=== PATIENT | male | born 1980 | race Caucasian/White ===

== ENCOUNTER 2024-04-07 00:44 | Emergency (ER) | payer OTHER, SELFPAY ==
[2024-04-07 00:51] VITALS: BP 134/95
[2024-04-07 01:13] VITALS: BMI 32.8
[2024-04-07 01:45] LABS: Urine Albumin Negative (Neg - Trace); Urine Bilirubin Negative (Negative); Urine Character Clear (Clear); Urine Color Yellow; Urine Glucose Negative (Negative); Urine Ketone Trace (Negative); Urine Leukocyte Negative (Negative); Urine Nitrite Negative (Negative); Urine Occult Blood Negative (Negative); Urine Urobilinogen 1+ (Neg - 1+); Urine pH 6.5 (5.0-9.0)
[2024-04-07 01:47] LABS: % Basophils 0.7 % (0-2); % Eosinophils 1.6 % (0-6); % Immature Granulocytes 0.3 % (0-0.5); % Lymphocytes 18.3 % (20.5-51.1); % Monocytes 15.9 % (1.7-9.3); % Neutrophils 63.2 % (42.2-75.2); Absolute Basophils 0.1 10^3/uL (0-0.2); Absolute Eosinophils 0.1 10^3/uL (0-0.7); Absolute Lymphocytes 1.3 10^3/uL (1.2-3.4); Absolute Monocytes 1.1 10^3/uL (0.1-0.6); Absolute Neutrophils 4.3 10^3/uL (1.4-6.5); Hematocrit 44.1 % (39.0-52.0); Hemoglobin 15.7 g/dL (13.0-18.0); Mean Corp Hgb Conc. 35.6 g/dL (33.0-37.0); Mean Corpuscular Hgb 28.9 pg (27.0-31.0); Mean Corpuscular Volume 81.1 fL (80.0-94.0); Mean Platelet Volume 9.6 fL (7.4-10.4); Nucleated Red Blood Cells % 0 % (-); Platelet Count 215 10^3/uL (130-400); Red Blood Cell Count 5.44 10^6/uL (4.70-6.10); Red Cell Dist. Width 13.2 % (11.5-14.5); White Blood Cell Count 6.8 10^3/uL (4.8-10.8)
[2024-04-07 02:01] LABS: ALT (SGPT) 33 U/L (0-50); AST (SGOT) 33 U/L (17-59); Albumin 4.2 g/dl (3.5-5.0); Alkaline Phosphatase 99 U/L (38-126); Blood Urea Nitrogen 12 mg/dl (9-20); Calcium 9.3 mg/dl (8.4-10.2); Carbon Dioxide 26 mmol/L (22-30); Chloride 105 mmol/L (98-107); Estimated Creatinine Clearance 109 ml/min; Glucose 114 mg/dl (70-99); Lipase 61 U/L (23-300); Potassium 4.1 mmol/L (3.5-5.1); Sodium 139 mmol/L (135-145); Total Bilirubin 0.5 mg/dl (0.2-1.3); Total Protein 6.5 g/dl (6.3-8.2); eGFR > 60.00
--- NOTE | 2024-04-07 02:12 | ED.GENMED ---
History of Present Illness
General
Chief Complaint: Abdominal Pain
Source: patient
Exam Limitations: none
Time Seen by Provider: 04/07/24 01:35
History of Present Illness
History of Present Illness:
This is a 44 year old male that comes in with c/o possible kidney stone. States that he started with left sided abd pain a few hour ago. State that he also has diarrhea. States that his pain is ok at this time. Denies any fever, chills, chest pain,
SOB, nausea, vomiting, headache, dizziness, urinary burning.
Past History
Past History
ED Past Medical History: Other (Renal calculus)
ED Past Surgical History: None
Social History
Tobacco: Non-smoker
Alcohol: Occasional
Personal: Single
Living: with family
Review of Systems
Review of Systems
All Other Systems: ROS reviewed and negative except as documented in HPI and ROS
Constitutional: Reports no symptoms; Denies fever or chills
EENT: Reports no symptoms
Respiratory: Reports no symptoms; Denies cough or trouble breathing
Cardiac: Reports no symptoms; Denies chest pain
ABD/GI: Reports abdominal pain (Left lower abd pain) and diarrhea; Denies nausea or vomiting
: Reports no symptoms; Denies dysuria, frequency or urgency
Musculoskeletal: Reports no symptoms
Skin: Reports no symptoms
Neurological: Reports no symptoms; Denies dizzy or headache
Psychiatric: Reports no symptoms
Phy Exam
General Physical Exam
General Presentation: well appearing and no apparent distress
General age: appears stated age
General Skin: warm and dry
General Habitus: normal
General Mental: alert
General Hydration: dry mucous membranes
ENT Exam
ENT Exam: TM's normal, pharynx normal and neck supple
Eye Exam
Eye Exam: EOMI
Cardiovascular Exam
Cardiovascular Exam: regular rate/rhythm, no edema, no murmur and normal peripheral pulses
Pulmonary Exam
Pulmonary Exam: lungs clear, no respiratory distress, no rales, chest non tender, no crackles, no rhonchi, no wheezing and no cough
Gastrointestinal Exam
Gastrointestinal Exam: normal bowel sounds, non tender, soft, no organomegaly, no pulsatile mass and non distended
Musculoskeletal Exam
Musculoskeletal Exam: full ROM and no edema
Skin Exam
Skin Exam: normal color, warm/dry, no rash and no petechia
Psychiatric Exam
Psychiatric Exam: normal mood/affect
Course
Orders/Labs/Results
Orders:
Orders
04/07/24 01:27
Complete Blood Count/With Diff Urgent
Comprehensive Metabolic Panel Urgent
Lipase Urgent
Urinalysis Reflex To Culture Urgent
Date Specimen was Collected: 04/07/24
Time Specimen was Collected: 01:17
04/07/24 01:42
0.9% Sodium Chloride 1000 ml [Nss] 1,000 ml IV BOLUS
04/07/24 01:43
CT Abd/pel Without Iv Or Oral Urgent
Comment:
Reason For Exam: Left lower abd pain
Abnormal Lab Results
04/07/24
01:27
Absolute Monos (auto) 1.1 H 10^3/uL
(0.1-0.6)
Lymphocytes % 18.3 L %
(20.5-51.1)
Monocytes % 15.9 H %
(1.7-9.3)
Glucose 114 H mg/dl
(70-99)
Urine Ketones Trace A
(Negative)
04/07/24 01:27
04/07/24 01:27
Glucose nonfasting. Urine negative for infection. Lipase normal at 61
Vital Signs
Initial and Last Documented VS:
Initial Vital Signs
Temp Pulse Resp BP Pulse Ox
98.4 F 96 18 134/95 96
04/07/24 00:51 04/07/24 00:51 04/07/24 00:51 04/07/24 00:51 04/07/24 00:51
Last Documented Vital Signs
Temp Pulse Resp BP Pulse Ox
98.4 F 67 20 136/96 98
04/07/24 00:51 04/07/24 02:18 04/07/24 02:18 04/07/24 02:18 04/07/24 02:18
MDM/Problems Addressed
Differential Diagnosis Includes:
Renal calculus, Colitis,
MDM/Problems Addressed:
This is a 44 year old male that comes in with c/o left lower abd pain. State that he thinks he has a kidney Stone. States that his pain started a few hours ago.
Will get labs and CT scan.
Back into see patient and parents. Explained that the CT scan is normal. Urine is negative for infection. Will discharge patient home.
Chronic conditions affecting care:
Renal calculus
Acute Exacerbation and/or Progression of Chronic Illness:
Renal calculus
*Radiology
Radiology exam reviewed: radiology read reviewed (CT night hawk- No acute abnormality within the abdomen or pelvis. No bowel obstruction. Normal gallbladder and appendix. Incidentals: Ryann mesentery, nonspecific. No obstructive uropathy, No hepatic
or pancreatic mass. No abdominal aortic aneurysm. No acute osseous abnormality. No acute abnormality) and other (CT cont- within the visualized lungs. No acute abnormality within the visualized soft tissue. )
*Pulse Oximetry
Patient hypoxic: no
*EKG
Interpreted by ED Provider?: NA
Rate: EKG- N/A
*Car Unloader Interpretation
Rate: Car Unloader- N/A
*Critical Care Note
Total Time (30-74mins, 75-104mins- exclusive of procedures): Not Applicable
ED Attending Note
-
Portions of this chart may have been created with voice recognition software.� Occasional wrong word or��sound alike� substitutions may have occurred due to the inherent limitations of voice recognition software.
Discharge Plan
Departure
Patient Disposition: Home (Routine Discharge)
Date of Disposition: 04/07/24
Time of Disposition: 02:58
Patient with high blood pressure during this ER visit?: Yes
Condition: Good
Covid-19: Not Applicable
Discharge Problem:
Abdominal pain, lower
Instructions: Abdominal Pain, BLOOD PRESSURE
Prescriptions:
No Action
Anafranil
100 mg PO DAILY
clonazepam [Klonopin] 0.5 mg Tablet
0.5 mg PO BID
aripiprazole [Abilify] 2 mg Tablet
2 mg PO DAILY
Caplyta
42 mg PO DAILY
Referrals:
UNKNOWN - PT DOES,NOT KNOW [Family Provider] -
Activity Restrictions/Additional Instructions:
As discussed, your blood work is normal. Your CT is negative for any acute process. Please increase your water intake to 8-8oz glasses daily. Follow up with the family doctor for recheck. IF YOU HAVE INCREASED OR CHANGING PAIN, FEVER, VOMITING OR
YOU HAVE ANY OTHER CONCERNS PLEASE RETURN TO THE EMERGENCY ROOM.
Interventions
Interventions:
*Risk Screen - Suicide Last Done: 04/07/24 00:51
*General Assessment Last Done: 04/07/24 00:51
*Neglect/Abuse Screening Last Done: 04/07/24 00:51
ED- Fall Risk Assessment Last Done: 04/07/24 00:51
*ED COVID-19 Vaccine History Last Done: 04/07/24 00:51
JK-Fqtxrr-Bpzxnffzix Assessment Last Done: 04/07/24 01:14
Discharge Date and Time
Print Language: BHUTANESE
[2024-04-07 02:18] VITALS: BP 136/96
[2024-04-07] MEDS: NSS 1000 IV (02:22)
== END 2024-04-07 03:08 | disposition home or self-care (01) ==
LOC: EMR 00:44
PROVIDERS: EMERGENCY PHYSICIAN Emergency Medicine
DX: R10.9 Unspecified abdominal pain (principal); N20.0 Calculus of kidney; Z87.442 Personal history of urinary calculi
CPT/HCPCS: 99284; 74176; 80053; 81003; 83690; 85025